=== PATIENT | male | born 1985 | race Caucasian/White ===

== ENCOUNTER 2017-04-06 16:04 | Emergency (ER) | payer OTHER ==
[~2017-04-06] VITALS: Ht 177.8 cm; Wt 81.8 kg
[2017-04-06 16:06] VITALS: BP 150/101; PULSE 67; RESP 16; O2SAT 97
[2017-04-06] MEDS ORDERED: HYDR-4003 PO ×2 (16:09→16:30)
--- NOTE | 2017-04-06 16:12 | ED.REPORT ---
HPI-Abd Pain M Under 40 Date of Service Apr 06, 2017 ED Provider: Gary Estrada MD 32 y/o male with a hx of cholelithiasis (x4), presents to the ED complaining of waxing and waning, sharp right flank pain, onset 2 days ago which significantly worsened today. Associated sx include diarrhea and dysuria. He denies hematuria. The pt states his sx are similar to the previous times he was diagnosed with cholelithiasis. Nursing Notes Stated Complaint: POSS KIDNEY STONES Chief Complaint: Male Abdominal Pain Nursing Notes Reviewed: Yes Allergies: Coded Allergies: No Known Allergies (Verified Allergy, Unknown, 04/06/17) Scheduled Tamsulosin (Flomax) 0.4 Mg Capsule 0.4 MG PO DAILY Scheduled PRN Hydrocodone-Acetaminophen 5-325 mg (Hydrocodone-Acetaminophen 5-325 mg) 1 Each Tablet 1-2 TABLET PO Q4H PRN PRN For Pain Hydrocodone-Acetaminophen 5-325 mg (Hydrocodone-Acetaminophen 5-325 mg) 1 Each Tablet 1 TABLET PO Q4H PRN PRN For Pain Ibuprofen (Ibuprofen) 600 Mg Tablet 600 MG PO TID PRN PRN For Pain General Time Seen by MD: 16:11 Chief Complaint Flank pain right Hx Obtained From: Patient Arrived By: Walk-in Sudden in Onset?: Yes Onset Occurred: 2 days ago Symptom Duration: Waxes and wanes Progression since Onset: Gradually worsening Location: : Flank right Quality: Painful Radiation: : Does not radiate Severity: Current: Severe Severity: Maximum: Severe Recent Healthcare: No recent doctor visit Similar Sx Previous: Yes Past Medical History Past Medical History Kidney stones x3 (all left side) Past Surgical History none reported Family History non-contributory Smoking History Unknown if Ever Smoker Social History Drug Use: Denies drug use Ambulatory Status Independent Review of Systems GI: Reports: Diarrhea Male: Reports Dysuria, Reports Flank pain (right), Denies Hematuria Complete sys rev & neg: except as marked. Physical Exam Initial Vital Signs Vital Signs (First) Date Time Temp Pulse Resp B/P Pulse Ox O2 Delivery O2 Flow Rate FiO2 04/06/17 16:06 36.4 67 16 150/101 97 Room Air Initial VS: Reviewed Head / Eyes: Atraumatic, Normocephalic Neck: Supple, Non-tender, Full range of motion Extremities: Vascular intact, Neuro intact, No swelling, No tenderness Skin: Warm, Dry, No cyanosis Neurologic: Alert, Oriented, Nonfocal General/Constitutional: Awake, Alert, Cooperative Distress / Hydration: Positive: Distress moderate Obviously uncomfortable Respiratory / Chest: Atraumatic, Breath sounds NL, Breath sounds = bilat, No respiratory distress, No rales, No rhonchi, No wheezing, No retractions Cardiovascular: Heart rate NL, Regular rhythm, Heart sounds NL, No gallop, No murmurs, No rubs Abdomen: Atraumatic, Soft, Non-tender, No guarding, No rebound, No distention Back: Atraumatic, Full range of motion Male Genitourinary: Atraumatic, Inspection NL, Penis NL (circumcised ), Testes NL No blood through urethral meatus Interpretation & Diagnostics Lab Results Interpretation Result Diagram: 04/06/17 1600 04/06/17 1600 Test 04/06/17 16:00 04/06/17 16:28 White Blood Count 9.3th/mm3 (3.8-10.1) Red Blood Count 4.80mil/mm3 (4.40-5.80) Hemoglobin 15.0g/dL (13.8-17.2) Hematocrit 42.3% (41.0-50.0) Mean Corpuscular Volume 88.1fL (81-100) Mean Corpuscular Hemoglobin 31.3pg (27.0-35.0) Mean Corpuscular Hemoglobin Concent 35.5% (32.0-37.0) Red Cell Distribution Width 12.6% (12.3-15.4) Platelet Count 271bil/L (150-400) Neutrophils (%) (Auto) 57.4% (40-74) Lymphocytes (%) (Auto) 29.2% (14-46) Monocytes (%) (Auto) 10.1% (4-12) Eosinophils (%) (Auto) 2.8% (0-5) Basophils (%) (Auto) 0.3% (0-3) Sodium Level 135mEq/L (134-144) Potassium Level 4.0mEq/L (3.5-5.2) Chloride Level 96mEq/L (97-108) Carbon Dioxide Level 23mmol/L (18-29) Blood Urea Nitrogen 16mg/dL (6-20) Creatinine 1.02mg/dL (0.76-1.27) Estimat Glomerular Filtration Rate 90mL/min (>59) Glucose Level 110mg/dL (60-99) Calcium Level 9.5mg/dL (8.5-10.1) Urine Color Yellow (YELLOW) Urine Appearance Hazy (CLEAR,HAZY) Urine pH 5.5 (5.0-8.0) Urine Specific [place] 1.020 (1.003-1.035) Urine Protein Negativemg/dL (NEG,TRACE) Urine Glucose (UA) Negativemg/dL (NEGATIVE) Urine Ketones Negativemg/dL (NEGATIVE) Urine Occult Blood Large (NEGATIVE) Urine Nitrite Negative (NEGATIVE) Urine Bilirubin Negative (NEGATIVE) Urine Urobilinogen Normalmg/dL (NORMAL) Urine Leukocyte Esterase Trace (NEGATIVE) Urine RBC 11-50/hpf (0-2) Urine WBC 0-5/hpf (0-5) Urine Epithelial Cells Few/hpf (NONE-MOD) Urine Crystals None seen (NONE SEEN) Urine Bacteria None/hpf (NONE-FEW) Urine Hyaline Casts None/lpf (NONE) Urine Granular Casts None seen (NONE SEEN) Urine Waxy Casts None seen (NONE SEEN) Urine Red Blood Cell Casts None seen (NONE SEEN) Urine White Blood Cell Casts None seen (NONE SEEN) Urine Mucus None seen (None Seen) Urine Trichomonas None seen (NONE SEEN) Urine Yeast None (NONE SEEN) Urinalysis Comment None Urine Culture Reflexed Indicated Re-Eval/Medical Decision Med Decision/Clinical Course Patient is a generally healthy 32-year-old male with a history of known kidney stones who presents with waxing and waning colicky right-sided flank pain that radiates to his right groin region. The presentation is similar to his previous episodes of kidney stones. He reports that he previously had a CT scan with documented kidney stones. He states that in the past used an old house all his kidney stone spontaneously without intervention. At this time, he is afebrile with stable vital signs and benign abdominal examination without any evidence suggestive of an acute surgical intra-abdominal process such as appendicitis. There is no evidence of testicular torsion, epididymitis or orchitis. The history, examination is consistent with renal colic as is his history thereof. CBC and basic metabolic panel are unremarkable without any evidence of acute kidney injury. Urinalysis reveals large blood and no findings suggestive of UTI. Here in the emergency department his pain was treated with IV Toradol and hydromorphone. He was additionally treated with IV fluids provided with a urine strainer. He has been referred to urology. He will be discharged with ibuprofen and Harcourt for pain and a prescription for Flomax. He is advised to return right away for worsening pain, UTI symptoms or inability to pass kidney stone. He will arrange for follow-up first thing next week with urology. Prior to discharge follow-up and return precautions were reviewed in detail with the patient who verbalized understanding and agreement with the plan. The patient was discharged in stable condition. Re-Evaluation/Progress : Time of Eval: 16:30 Re-Evaluation/Progress Note: Rechecked pt. Discussed diagnosis and plan to discharge. Pt understands and agrees with the plan. F/U instructions and RTER warning given. All questions addressed. Counseled Regarding: Diagnosis, Lab results, Need for follow-up, When/why to return to ED Patient Discharge & Departure Primary Impression: Kidney stone Additional Impressions: Renal colic on right side Flank pain, acute History of kidney stones Hematuria Disposition: Home Discharge Condition All VS Reviewed: Yes Condition: Stable Patient Instructions: Kidney Stones (ED) Additional Instructions: Thank you for seeking care at emergency room. It is difficult for us to make definitive diagnoses in the ED but we believe that you are experiencing any stones. Our primary goal today in the ED was to evaluate you for any life-threatening conditions. Your evaluation was reassuring. You will be discharged with a prescription for ibuprofen and Harcourt for pain and Flomax to help pass the stone. Please call first thing on Saturday to arrange for a follow-up appointment with the urologist. Please use the urine strainer as directed. You should return to the ED immediately if you develop increasing pain, burning with urination, fevers, vomiting, cough, shortness of breath, chest pain, lightheadedness, weakness or any other concerning signs or symptoms. Thank you for letting us partake in your care today. Referrals: Roland Singh MD (PCP) [facility] Scribe Attestation Portions of this note were transcribed by Pawel Baltazar. I, , personally performed the history, physical exam and medical decision-making;I reviewed and confirmed the accuracy of the information in the transcribed note. Signed by Shannan Harris. 04/06/17 16:41 copies to: Roland Singh MD; [facility] Scruggs MD Apr 06, 2017 16:12 Pawel Baltazar Apr 06, 2017 16:17
[2017-04-06] MEDS ORDERED: 0.9% Sodium Chloride 1,000 ML IV ONE (16:15)
[2017-04-06] MEDS ORDERED: HYDROmorphone 0.5 mg/0.5 mL iSecure Syringe IVPUSH ONE ×2 (16:30→17:30)
[2017-04-06] MEDS ORDERED: TAMS0.4C98 PO (16:30)
[2017-04-06] MEDS ORDERED: IBUP-1827 PO (16:30)
[2017-04-06 16:50] LABS: APPEARANCE,URINE HAZY (CLEAR,HAZY); COLOR,URINE YELLOW (YELLOW); OCCULT BLOOD,URINE LARGE (NEGATIVE); PH,URINE 5.5 (5.0-8.0); UROBILINOGEN,URINE NORMAL (NORMAL)
[2017-04-06 16:56] LABS: BASOPHILS % (AUTO) 0.3 % (0-3); EOSINOPHILS % (AUTO) 2.8 % (0-5); MONOCYTES % (AUTO) 10.1 % (4-12); Mean Corpuscular Hemoglobin 31.3 pg (27.0-35.0); Mean Corpuscular Volume 88.1 fL (81-100); NEUTROPHILS % (AUTO) 57.4 % (40-74); Platelet Count 271 bil/L (150-400)
[2017-04-06] MEDS ORDERED: Ondansetron 2 mg/mL 2 mL Inj IVPUSH ONE (17:00)
[2017-04-06] MEDS ORDERED: MetoCLOpramide 5 mg/mL 2 mL Inj IVPUSH PRN (17:30)
[2017-04-06] MEDS ORDERED: ONDA4TAB9 PO (17:38)
[2017-04-06 17:47] VITALS: BP 127/70; PULSE 60; RESP 20; O2SAT 97
== END 2017-04-06 17:48 | disposition home or self-care (01) ==
LOC: SED 16:04
DX: N20.0 Calculus of kidney (principal); N23 Unspecified renal colic; R19.7 Diarrhea, unspecified; Z87.442 Personal history of urinary calculi
CPT/HCPCS: 36415; 80048; 81000; 85025; 87086; 96361; 96374; 96375; 99285; J1170; J1885; J2405; J7030